=== PATIENT | male | born 1975 | race Caucasian/White ===

== ENCOUNTER → 2020-01-02 | Outpatient (CLI) | payer BC, OTHER ==
[2020-01-02 12:18] LABS: APTT 35.2 Seconds (24.5-32.8); INR 1.1; PROTIME 11.1 Seconds (9.3-11.4)
[2020-01-02 13:40] VITALS: BP 117/59
[2020-01-02 13:55] VITALS: BP 108/51
[2020-01-02 14:20] VITALS: BP 112/64
== END | disposition home or self-care (01) ==
LOC: CAT 08:52
PROVIDERS: Radiology Diagnostic Radiology
DX: K35.33 Acute appendicitis with perforation, localized peritonitis, and gangrene, with abscess (principal); B96.89 Other specified bacterial agents as the cause of diseases classified elsewhere; B95.1 Streptococcus, group B, as the cause of diseases classified elsewhere; Z79.899 Other long term (current) drug therapy

== ENCOUNTER → 2020-01-08 | Outpatient (CLI) | payer BC, OTHER | LOC: CAT 08:57 | DX: Z48.816 Encounter for surgical aftercare following surgery on the genitourinary system (principal) ==